=== PATIENT | male | born 1975 | race Caucasian/White ===

== ENCOUNTER → 2016-08-29 | Outpatient (CLI) | payer BC ==
[~2016-08-29] MED LIST: ASPIR-LOW81 MG PO; HYDROCHLOROTHIA25 MG PO; KLOR-CON 1010 MEQ PO; NIASPAN500 MG PO; PROTONIX 40 MG40 M1 PO
[2016-08-29 10:21] LABS: HEMOGLOBIN 16.8 gm/dl (14.0-17.5); RED BLOOD COUNT 5.48 M/UL (4.20-5.50); WHITE BLOOD COUNT 6.1 K/UL (4.5-11.0)
[2016-08-29 10:44] LABS: BUN/CREATININE RATIO 13 (0-10)
== END ==
LOC: LAB 09:11
PROVIDERS: Family Medicine
DX: M25.532 Pain in left wrist (principal); E55.9 Vitamin D deficiency, unspecified; I10 Essential (primary) hypertension; M25.531 Pain in right wrist; M79.641 Pain in right hand; M25.832 Other specified joint disorders, left wrist; M25.842 Other specified joint disorders, left hand
CPT/HCPCS: 36415; 73110; 73130; 80053; 80061; 85025; 86141; 86200; 86431

== ENCOUNTER 2020-12-17 23:02 | Emergency (ER) | payer SELFPAY ==
[~2020-12-17 23:02] MED LIST changes: +DOXYCYCLINE HY100 M3 PO; +PERCOCET 5-3251 EACH PO; +TYLENOL 325MG325 MG PO
[2020-12-18 00:55] LABS: HEMOGLOBIN 17.3 gm/dl (14.0-17.5); RED BLOOD COUNT 5.62 M/UL (4.20-5.50); WHITE BLOOD COUNT 11.4 K/UL (4.5-11.0)
[2020-12-18 01:14] LABS: BUN/CREATININE RATIO 15 (0-10)
[2020-12-18] MEDS ORDERED: LODINE CAP 300300 MG PO (03:51)
[2020-12-18] MEDS ORDERED: AMOXICILLIN500 MG PO (03:51)
== END 2020-12-18 04:00 | disposition home or self-care (01) ==
LOC: ER1 23:02
PROVIDERS: Physician Assistant
DX: A46 Erysipelas (principal)
CPT/HCPCS: 73564; 80053; 85025; 85652; 86140; 99283